=== PATIENT | female | born 1955 | race Caucasian/White ===

== ENCOUNTER → 2019-01-16 | Outpatient (CLI) | payer BC ==
--- NOTE | 2019-01-16 10:02 | Diagnostic Imaging Report ---
EXAMINATION: MRI of the lumbar spine without contrast HISTORY: Low back pain radiating to the right lower extremity for the last 2 weeks, sciatica COMPARISON: None. TECHNIQUE: Sagittal T1, T2, STIR; axial T2 and proton density. FINDINGS: It is assumed that there are 5 lumbar vertebrae. Curvature/Alignment: Normal lordosis. Levoscoliosis seen with apex at L3-L4 right-sided proximal and distal lumbosacral convexity recurves. Right lateral spondylolisthesis seen at L3-L4. Minimal retrolisthesis at L1-L2. Vertebrae: No evidence of recent fracture, infection, or neoplasm. Chronic endplate degenerative changes from L1 to S1. Modic type I endplate degenerative changes with subchondral bone marrow edema mainly on the left at L1-L2 and on the right at L3-L4 and L4-L5. Conus: Normal, terminating at L1 Cauda equina: Unremarkable. Lower thoracic: Unremarkable. Paraspinal soft tissues: Moderate to severe atrophy of the paraspinal muscles mainly in the lumbosacral region. Degenerative changes: L1-L2: Asymmetric to left disc osteophyte and facet arthrosis. Moderate left foraminal stenosis. No canal or right foraminal stenosis. L2-L3: Mild facet arthrosis without stenosis. L3-L4: Decreased disc height and T2 signal intensity, asymmetric to the right disc osteophyte complex formation and facet arthrosis. Ligamenta flava thickening. Moderate spinal canal stenosis. Moderately severe right and moderate left foraminal stenosis. L4-L5: Decreased disc height and T2 signal intensity, asymmetric to the right disc osteophyte complex formation with marginal endplate osteophytes, prominent facet arthroses and ligamenta flava thickening. Moderately severe spinal canal and severe right foraminal stenosis with probable compression upon the exiting right L4 nerve root. Minimal bilateral facet joint effusion with bone marrow edema, periarticular swelling related to degenerative synovitis. Additionally small right medial facet 3 mm synovial cyst contributing to canal narrowing. L5-S1: Decreased disc height and T2 signal intensity, with marginal endplate osteophytes and facet arthrosis. Mild bilateral foraminal stenosis. No spinal canal stenosis. IMPRESSION: 1. Moderate degenerative spinal canal and moderately severe right and moderate left foraminal stenosis at L3-L4. 2. Moderately severe spinal canal and severe right foraminal stenosis at L4-L5 due to degenerative changes and scoliosis. Possible compression upon the exiting right L4 nerve root. 3. 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 4. Prominent S shaped scoliosis predominantly levoscoliosis centered at L3-L4. 5. Modic Type 1 endplate degenerative changes with subchondral bone marrow edema at L1-L2, L3-L4 and L4-L5. Signed by: Dr. Rin Fowler M.D. on 01/16/2019 9:59 AM
== END ==
LOC: MRI 07:33
PROVIDERS: ATTEND Family Medicine
DX: M54.31 Sciatica, right side (principal)
CPT/HCPCS: 72148

== ENCOUNTER 2019-01-30 09:17 | Observation (INO) | payer MEDICARE ==
[2019-01-29 12:11] LABS: BASOPHILS % 0.4 % (0.0-1.0); EOSINOPHILS # (AUTO) 0.2 (0.0-0.4); EOSINOPHILS % 2.9 % (0.0-6.0); HEMOGLOBIN 15.7 g/dL (12.0-16.0); LYMPHOCYTES # (AUTO) 1.2 (1.0-3.2); LYMPHOCYTES % 14.5 % (18.0-39.1); MEAN CORPUSCULAR HGB CONC 34.1 g/dL (31-35); MEAN CORPUSCULAR VOLUME 93.9 fL (81-99); MONOCYTES # (AUTO) 0.5 (0.2-0.8); MONOCYTES % 5.4 % (4.4-11.3); NEUTROPHILS # (AUTO) 6.4 (2.1-6.9); NEUTROPHILS % 76.3 % (38.7-80.0); PLATELET COUNT 228 x10e3/uL (140-360); RED CELL DISTRIBUTION WIDTH 13.2 % (11.7-14.4)
--- NOTE | 2019-01-29 12:19 | Diagnostic Imaging Report ---
EXAMINATION: PA and lateral views of the chest. COMPARISON: None available CLINICAL HISTORY: Preoperative study for spinal surgery DISCUSSION: Lines/tubes: None. Lungs: The lungs are well inflated and clear. There is no evidence of pneumonia or pulmonary edema. Pleura: There is no pleural effusion or pneumothorax. Heart and mediastinum: The cardiomediastinal silhouette is normal. Bones and soft tissues: No acute bony abnormalities. IMPRESSION: No acute cardiopulmonary abnormalities. Signed by: Dr. Tawanda Padilla M.D. on 01/29/2019 12:15 PM
[2019-01-29 12:25] LABS: INR 0.89; PARTIAL THROMBOPLASTIN TIME 26.4 seconds (23.8-35.5); PROTHROMBIN TIME 12.5 seconds (11.9-14.5)
[2019-01-29 12:31] LABS: ANION GAP 11.8 mmol/L (8-16); BLOOD UREA NITROGEN 16 mg/dL (7-26); BUN/CREATININE RATIO 18 (6-25); CALCIUM 9.8 mg/dL (8.4-10.2); CARBON DIOXIDE 26 mmol/L (22-29); CHLORIDE 104 mmol/L (98-107); CREATININE, SERUM 0.89 mg/dL (0.57-1.11); EST GLOMERULAR FILTRATION RATE > 60 ML/MIN (60-); GLUCOSE 119 mg/dL (74-118); POTASSIUM 3.8 mmol/L (3.5-5.1); SODIUM 138 mmol/L (136-145)
[2019-01-30] VITALS (7 sets, daily range): BP systolic 180–210; BP diastolic 76–91
[~2019-01-30] VITALS: Ht 167.6 cm; Wt 116.8 kg
[~2019-01-30 09:17] MED LIST: ACTOS15 MG PO; ASPIR 8181 MG PO; ATORVASTATIN CA10 MG PO; ATORVASTATIN CA20 MG PO; BACITRACIN 50,000 UNIT VIAL ONE; BUPIVACAINE 0.5%/EPI 30 ML SDV INJ ONE; CALCIUM PO; FUROSEMIDE40 MG PO; GELATIN SPONGE 12-7MM ONE; INVOKANA PO; JANUVIA100 MG PO; LEVOTHYROXINE100 MC1 PO; LOSARTAN POTAS100 MG PO; METAXALONE800 MG PO; METOPROLOL SUCC50 MG PO; MULTI-VITAMIN1 EACH PO; NIFEDIPINE ER30 M1 PO; POTASSIUM CHLO10 ME1 PO; THROMBIN FOR SOLN 5,000 UNIT VIAL ONE; TRESIBA SC; TYLENOL WITH C1 EACH PO; VIT B PO; VIT D PO; ZYRTEC10 M3 PO
--- OUTSIDE RECORDS SUMMARY | 2019-01-30 09:25 | XMS REPORT ---
Author Author [facility] Address Unknown Phone Unavailable Care Team Providers Care Agricultural Service Technician Name Role Phone OSVALDO BARNES Unavailable Unavailable YUE CASTRO Unavailable Unavailable Problems This patient has no known problems. Allergies, Adverse Reactions, Alerts This patient has no known allergies or adverse reactions. Medications This patient has no known medications. Results Test Description Test Time Test Comments Text Results Atomic Results Result Comments CHEST 2 VIEWS 2019-01-29 12:14:00 [facility] [address] [address] Patient Name: JARON RUELAS MR #: [id number] : 1955 Age/Sex: 63/F Req #: [id number] Adm Physician: Ordered by: OSVALDO BARNES MD Report #: [id number] Location: OR Room/Bed: Procedure: [id number] DX/CHEST 2 VIEWS Exam Date: 01/29/19 Exam Time: 1150 REPORT STATUS: Signed EXAMINATION: PA and lateral views of the chest. COMPAR LITZY: None available CLINICAL HISTORY: Preoperative study for spinal surgery DISCUSSION: Lines/tubes: None. Lungs: The lungs are well inflated and clear. There is no evidence of pneumonia or pulmonary edema. Pleura: There is no pleural effusion or pneumothorax. Heart and mediastinum: The cardiomediastinal silhouette is normal. Bones and soft tissues: No acute bony abnormalities. IMPRESSION: No acute cardiopulmonary abnormalities. Signed by: Dr. Aide Kelley M.D. on 01/29/2019 12:15 PM Dictated By: AIDE KELLEY MD 14 Transcribed By: HENRY on 01/29/191214 COPY TO: OSVALDO BARNES MD MRI SPINE LUMBAR WO 2019-01-16 09:53:00 [address] [address] Patient Name: JARON RUELAS MR #: [id number] : 1955 Age/Sex: 63/F Req #: [id number] Adm Physician: Ordered by: YUE CASTRO DO Report #: [id number] Location: MRI Room/Bed: Procedure: [id number] MRI/MRI SPINE LUMBAR WO Exam Date: Exam Time: REPORT STATUS: Signed EXAMINATION: MRI of the lumbar spine without contrast HISTORY: Low back pain radiating to the right lower extremity for the last 2 weeks, sciatica COMPARISON: None. TECHNIQUE: Sagittal T1, T2, STIR; axial T2 and proton density. FINDINGS: It is assumed that there are 5 lumbar vertebrae. Curvature/Alignment: Normal lordosis. Levoscoliosis seen with apex at L3-L4 right-sided proximal and distal lumbosacral convexity recurves. Right lateral spondylolisthesis seen at L3-L4. Minimal retrolisthesis at L1-L2. Vertebrae: No evidence of recent fracture, infection, or neoplasm. Chronic endplate degenerative changes from L1 to S1. Modic type I endplate degenerative changes with subchondral bone marrow edema mainly on the left at L1-L2 and on the right at L3-L4 and L4-L5. Conus: Normal, terminating at L1 Cauda equina: Unremarkable. Lower thoracic: Unremarkable. Paraspinal soft tissues: Moderate to severe atrophy of the paraspinal muscles mainly in the lumbosacral region. Degenerative changes: L1-L2: Asymmetric to left disc osteophyte and facet arthrosis. Moderate left foraminal stenosis. No canal or right foraminal stenosis. L2-L3: Mild facet arthrosis without stenosis. L3-L4: Decreased disc height and T2 signal intensity, asymmetric to the right disc osteophyte complex formation and facet arthrosis. Ligamenta flava thickening. Moderate spinal canal stenosis. Moderately severe right and moderate left foraminal stenosis. L4-L5: Decreased disc height and T2 signal intensity, asymmetric to the right disc osteophyte complex formation with marginal endplate osteophytes, prominent facet arthroses and ligamenta flava thickening. Moderately severe spinal canal and severe right foraminal stenosis with probable compression upon the exiting right L4 nerve root. Minimal bilateral facet joint effusion with bone marrow edema, periarticular swelling related to degenerative synovitis. Additionally small right medial facet 3 mm synovial cyst contributing to canal narrowing. L5-S1: Decreased disc height and T2 signal intensity, with marginal endplate osteophytes and facet arthrosis. Mild bilateral foraminal stenosis. No spinal canal stenosis. IMPRESSION: 1. Moderate degenerative spinal canal and moderately severe right and moderate left foraminal stenosis at L3-L4. 2. Moderately severe spinal canal and severe right foraminal stenosis at L4-L5 due to degenerative changes and scoliosis. Possible compression upon the exiting right L4 nerve root. 3. 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 4. Prominent S shaped scoliosis predominantly levoscoliosis centered at L3-L4. 5. Modic Type 1 endplate degenerative changes with subchondral bone marrow edema at L1-L2, L3-L4 and L4-L5. Signed by: Dr. Az Fowler M.D. on 01/16/2019 9:59 AM Dictated By: AZ FOWLER MD 8 Transcribed By: HENRY on 01/16/19958 COPY TO: YUE CASTRO DO
[2019-01-30] MEDS ORDERED: CEFAZOLIN SOD 2 GM/D5W 50ML 50 ML IV ONE (09:51)
[2019-01-30] MEDS ORDERED: ACETAMINOPHEN 1000 MG/100 ML 100 ML IV ONE (11:17)
[2019-01-30] MEDS ORDERED: SUGAMMADEX SODIUM 200 MG/2 ML VIAL IV ONE (11:17)
[2019-01-30] MEDS ORDERED: CARISOPRODOL 350 MG TAB PO PRN (12:45)
[2019-01-30] MEDS ORDERED: ACETAMINOPHEN 325 MG TAB PO PRN (12:45)
[2019-01-30] MEDS ORDERED: PROMETHAZINE HCL (IM) 25 MG/ML VIAL IM PRN (12:45)
[2019-01-30] MEDS ORDERED: HYDROMORPHONE 2MG/ML 2 MG/ML ML IV PRN (12:45)
[2019-01-30] MEDS ORDERED: OXYCODONE/ACETAMINOPHEN 5-325 1 EACH TABLET PO PRN (12:45)
[2019-01-30] MEDS ORDERED: MORPHINE SULFATE 5 MG/ML VIAL IM PRN (12:45)
[2019-01-30] MEDS ORDERED: ZOLPIDEM TARTRATE 5 MG TAB PO PRN (12:45)
[2019-01-30] MEDS ORDERED: MAGNESIUM/ALUMINUM/SIMETHICONE 30 ML UDC PO PRN (12:45)
[2019-01-30] MEDS ORDERED: ONDANSETRON HCL INJ 2MG/ML 2ML 2 MG/ML VIAL IV PRN (12:45)
[2019-01-30] MEDS ORDERED: CEFAZOLIN SOD 1 GM/NS 50ML 50 ML IV SCH (14:00)
--- NOTE | 2019-01-30 14:00 | NUR ---
patient arrived to unit alert and oriented. call duarte within reach and bed in lowest position. daughter at bedside.
[2019-01-30] MEDS: METAXALONE 800 MG TAB PO SCH ×2 (14:40→20:02)
[2019-01-30] MEDS: LACTATED RINGER'S 1,000 ML IV SCH ×3 (14:45→19:21)
[2019-01-30] MEDS ORDERED: LOSARTAN POTASSIUM 100 MG TAB PO ONE (16:00)
[2019-01-30] MEDS ORDERED: PNEUMOCOCCAL VACCINE POLYVALENT 23 MCG/0.5 ML VIAL IM SCH (16:00)
[2019-01-30] MEDS: POTASSIUM CHLORIDE 10MEQ EA PO SCH (16:45)
[2019-01-30] MEDS ORDERED: FENTANYL CITRATE/PF 100MCG/2 ML INJ ONE (17:35)
[2019-01-30] MEDS ORDERED: MORPHINE SULFATE INJ 10 MG/ML ONE (17:35)
[2019-01-30] MEDS ORDERED: MIDAZOLAM HCL 2 MG/2 ML VIAL ONE (17:35)
--- NOTE | 2019-01-30 18:40 | NUR ---
rounded with overnight cashier nurse, patient aware of change and in no distress with sister at bedside. call duarte within reach and bed in lowest position.
[2019-01-30] MEDS: CEFAZOLIN SOD 1 GM/NS 50ML 50 ML IV SCH (19:11)
[2019-01-30] MEDS ORDERED: DESFLURANE 240 ML BTL INH ONE (19:26)
[2019-01-30] MEDS ORDERED: DEXAMETHASONE SOD PHOS INJ 4 MG/ML VIAL ONE (19:26)
[2019-01-30] MEDS ORDERED: PROPOFOL IV EMULSION 10 MG/ML 20 ML VIAL ONE (19:26)
[2019-01-30] MEDS ORDERED: ONDANSETRON HCL INJ 2MG/ML 2ML 2 MG/ML VIAL ONE (19:26)
[2019-01-30] MEDS ORDERED: LIDOCAINE HCL 2% LOCAL INJ 5 ML SDV VIAL INJ ONE (19:26)
--- NOTE | 2019-01-30 20:24 | Operative Report ---
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 POSTOPERATIVE DIAGNOSIS: Right L3-4 and L4-5 lateral recess stenosis with radiculopathy and unilateral neurogenic claudication, M48.062. PROCEDURES: 1. Right L3-4 laminotomy, medial facetectomy, and microsurgical lateral recess decompression, 39585. 2. Right L4-5 laminotomy, medial facetectomy, and microsurgical lateral recess decompression, [id number]. ANESTHESIA: General. INDICATIONS: The patient is a 63-year-old woman who presents with severe right L3-4 and L4-5 lateral recess stenosis due to facet and ligamentous hypertrophy. Symptomatic with right-sided radicular pain and unilateral neurogenic claudication. She was taken operating room for microsurgical decompression of these two segments. PROCEDURE IN DETAIL: After induction of general anesthesia, the patient was placed on the operating table in prone position over David frame. Lumbar region was prepped and draped in sterile fashion. A preoperative x-ray was obtained. A midline incision was created. The lumbar fascia was on the right of midline and subperiosteal dissection was carried out to expose the right side of the L3, L4, and L5 lamina and the medial aspect of the corresponding hypertrophic facet joints. A 2nd x-ray confirmed correct localization. The operating microscope was brought in. A high-speed drill equipped with israel bur was used to drill the inferior aspect of the lamina of L3 and the medial aspect of the L3-4 hypertrophic facet joint, and superior rim of the lamina of L4 and the inferior aspect of lamina of L4 and the medial rim of the hypertrophic L4-5 facet joint and the superior rim of the lamina of L5. The markedly hypertrophic ligamentum flavum at L3-4 and L4-5 was then carefully dissected off the dura and resected in a piecemeal fashion until the right side of the dura and right L4 and L5 traversing nerve roots were fully exposed and decompressed. Meticulous hemostasis was secured. The retractor was removed. The lumbar fascia was closed with zero Vicryl suture. Subcutaneous layer was closed with 2-0 Vicryl sutures. The skin was closed with 3-0 Monocryl sutures in subcuticular fashion. Steri-Strips and dressing were applied. The patient was awakened, extubated, and taken to postanesthesia care unit in stable condition. No intraoperative complications were encountered. Estimated blood loss was 20 mL. Marcelino Yoder MD PP/MAIA /[id number]
[2019-01-30] MEDS ORDERED: [UNRECOGNIZED DRUG - OTHER] SC SCH (21:00)
[2019-01-30] MEDS ORDERED: PIOGLITAZONE HCL 15 MG TAB PO SCH (21:00)
[2019-01-30] MEDS ORDERED: ATORVASTATIN 20 MG TAB PO SCH (21:00)
[2019-01-30] MEDS ORDERED: SITAGLIPTIN 100 MG TAB PO SCH (21:00)
[2019-01-30] MEDS ORDERED: METOPROLOL SUCCINATE 50 MG TAB XL PO SCH (21:00)
[2019-01-31] VITALS: BP 163/70
[2019-01-31] MEDS: CEFAZOLIN SOD 1 GM/NS 50ML 50 ML IV SCH (03:11)
[2019-01-31 04:00] VITALS: BP 162/72
[2019-01-31] MEDS: METAXALONE 800 MG TAB PO SCH (05:06)
[2019-01-31] MEDS ORDERED: CANAGLIFLOZIN 300 MG TABLET PO SCH (09:00)
[2019-01-31] MEDS ORDERED: FUROSEMIDE 40 MG TAB PO SCH (09:00)
[2019-01-31] MEDS ORDERED: NIFEDIPINE CR 30 MG TAB PO SCH (09:00)
[2019-01-31] MEDS ORDERED: ACETAMINOPHEN/CODEINE 300MG - 30MG TAB PO PRN (09:00)
[2019-01-31] MEDS ORDERED: LOSARTAN POTASSIUM 100 MG TAB PO SCH (09:00)
[2019-01-31] MEDS ORDERED: LORATADINE 10 MG TAB PO SCH (09:00)
[2019-01-31] MEDS ORDERED: MULTIVITAMINS/MINERALS TAB PO SCH (09:00)
[2019-01-31] MEDS ORDERED: NON-FORMULARY MEDICATION ([Invokana] 300 MG) PO SCH (09:00)
[2019-01-31] MEDS: POTASSIUM CHLORIDE 10MEQ EA PO SCH (09:58)
[2019-01-31 10:03] VITALS: BP 154/77
[2019-01-31 10:08] VITALS: BP 154/77
[2019-01-31] MEDS ORDERED: NORCO 7.5-3251 EACH PO (10:24)
[2019-01-31] MEDS ORDERED: ONDANSETRON HCL 4 MG ORAL DISINTEGRATING TAB PO PRN (10:45)
== END 2019-01-31 10:50 | disposition home or self-care (01) ==
LOC: OR 09:17 → PACU V 12:39 → IMCU 14:08
PROVIDERS: ADMIT Neurological Surgery; ATTEND Neurological Surgery
DX: M48.062 Spinal stenosis, lumbar region with neurogenic claudication (principal); Z01.810 Encounter for preprocedural cardiovascular examination; Z01.812 Encounter for preprocedural laboratory examination; Z01.811 Encounter for preprocedural respiratory examination; E11.9 Type 2 diabetes mellitus without complications; E03.9 Hypothyroidism, unspecified; I10 Essential (primary) hypertension; E78.00 Pure hypercholesterolemia, unspecified; R06.02 Shortness of breath; Z91.041 Radiographic dye allergy status; Z91.013 Allergy to seafood; Z79.82 Long term (current) use of aspirin; Z79.84 Long term (current) use of oral hypoglycemic drugs; E66.9 Obesity, unspecified; Z68.41 Body mass index [BMI] 40.0-44.9, adult; E78.5 Hyperlipidemia, unspecified; Z90.49 Acquired absence of other specified parts of digestive tract
CPT/HCPCS: 36415 ×3; 63047; 63048; 71046; 72020; 80048; 82948 ×2; 85025; 85610; 85730; 86850; 86900; 88304; 88311; 93005; G0378 ×2; J0131; J0690 ×2; J1100; J2001; J2250; J2270; J2405; J2704; J7121

== ENCOUNTER 2019-02-20 17:00 | Outpatient (RCR) | payer MEDICARE ==
[~2019-02-20 17:00] MED LIST changes: -BACITRACIN 50,000 UNIT VIAL ONE; -BUPIVACAINE 0.5%/EPI 30 ML SDV INJ ONE; -GELATIN SPONGE 12-7MM ONE; +NORCO 7.5-3251 EACH PO; -THROMBIN FOR SOLN 5,000 UNIT VIAL ONE
== END 2019-02-23 ==
LOC: PT 17:00
PROVIDERS: ATTEND Neurological Surgery
DX: M48.062 Spinal stenosis, lumbar region with neurogenic claudication (principal); M62.81 Muscle weakness (generalized); M53.86 Other specified dorsopathies, lumbar region

== ENCOUNTER 2019-03-20 17:00 | Outpatient (RCR) | payer MEDICARE | END 2019-03-26 | LOC: PT 17:00 | PROVIDERS: ATTEND Neurological Surgery | DX: M48.062 Spinal stenosis, lumbar region with neurogenic claudication (principal); M62.81 Muscle weakness (generalized); M53.86 Other specified dorsopathies, lumbar region ==

== ENCOUNTER 2021-08-24 11:12 | Inpatient (IN) | payer MEDICARE ==
[2021-08-24] VITALS (9 sets, daily range): BP systolic 142–172; BP diastolic 71–145
[~2021-08-24] VITALS: Ht 167.6 cm; Wt 96.2 kg
[2021-08-24] MEDS ORDERED: SODIUM CHLORIDE 0.9% 1000ML 1,000 ML IV STA (11:33)
[2021-08-24] MEDS ORDERED: CEFEPIME 2 GM in SODIUM CHLORIDE 0.9% 100 ML IV ONE (11:45)
[2021-08-24 11:51] LABS: BASOPHILS # (AUTO) 0.1 (0.0-0.1); BASOPHILS % 0.6 % (0.0-1.0); EOSINOPHILS # (AUTO) 0.2 (0.0-0.4); EOSINOPHILS % 2.3 % (0.0-6.0); HEMATOCRIT 46.2 % (34.2-44.1); HEMOGLOBIN 15.3 g/dL (12.0-16.0); LYMPHOCYTES # (AUTO) 0.8 (1.0-3.2); LYMPHOCYTES % 8.3 % (18.0-39.1); MEAN CORPUSCULAR HEMOGLOBIN 32.2 pg (28-32); MEAN CORPUSCULAR HGB CONC 33.1 g/dL (31-35); MEAN CORPUSCULAR VOLUME 97.3 fL (81-99); MONOCYTES # (AUTO) 0.8 (0.2-0.8); MONOCYTES % 8.5 % (4.4-11.3); NEUTROPHILS # (AUTO) 7.7 (2.1-6.9); NEUTROPHILS % 79.4 % (38.7-80.0); PLATELET COUNT 251 x10e3/uL (140-360); RED BLOOD COUNT 4.75 x10e6/uL (3.6-5.1); RED CELL DISTRIBUTION WIDTH 13.6 % (11.7-14.4)
[2021-08-24 11:55] LABS: INR 1.08; PROTHROMBIN TIME 14.9 seconds (11.9-14.5)
[2021-08-24 11:56] LABS: PARTIAL THROMBOPLASTIN TIME 27.6 seconds (23.8-35.5)
[2021-08-24 12:00] LABS: CLARITY,URINE CLOUDY (CLEAR); COLOR,URINE YELLOW (YELLOW); KETONES,URINE 2+ (NEGATIVE); LEUKOCYTE ESTERASE ,URINE SMALL (NEGATIVE); NITRITE,URINE NEGATIVE (NEGATIVE); PROTEIN,URINE DIPSTICK 2+ (NEGATIVE); URINE UROBILINOGEN 0.2 mg/dL (0.2 - 1)
[2021-08-24 12:01] LABS: BACTERIA,URINE MODERATE /HPF; WBC,URINE (MAN) >50 /HPF (0-5); YEAST,URINE FEW
[2021-08-24 12:05] LABS: ALBUMIN 3.3 g/dL (3.5-5.0); ALBUMIN/GLOBULIN RATIO 0.8 (0.8-2.0); ANION GAP 26.1 mmol/L (8-16); CALCIUM 10.6 mg/dL (8.4-10.2); CREATININE, SERUM 1.18 mg/dL (0.57-1.11); MAGNESIUM 1.8 MG/DL (1.3-2.1); POTASSIUM 3.1 mmol/L (3.5-5.1)
[2021-08-24 12:24] LABS: CREATINE KINASE MB 2.6 ng/mL (0-5.0); THYROID STIMULATING HORMONE 2.545 uIU/mL (0.350-4.940)
[2021-08-24] MEDS ORDERED: SODIUM CHLORIDE 0.9% 500ML 500 ML IV ONE ×2 (12:30→14:30)
[2021-08-24] MEDS ORDERED: ONDANSETRON HCL INJ 2MG/ML 2ML 2 MG/ML VIAL IV STA (13:02)
[2021-08-24] MEDS ORDERED: POTASSIUM CHLORIDE 20 MEQ TAB CR PO STA (13:02)
[2021-08-24] MEDS ORDERED: DEXAMETHASONE SOD PHOS 10 MG/1 ML VIAL IV ONE (13:15)
[2021-08-24] MEDS ORDERED: LEVETIRACETAM 500MG/5ML VIAL 1,000 MG in SODIUM CHLORIDE 0.9% 100 ML IV ONE (13:45)
[2021-08-24] MEDS ORDERED: POTASSIUM CHLORIDE 20MEQ/100ML 100 ML IV ONE (14:30)
[2021-08-24] MEDS ORDERED: ONDANSETRON HCL INJ 2MG/ML 2ML 2 MG/ML VIAL IV PRN (15:45)
[2021-08-24] MEDS ORDERED: SODIUM CHLORIDE 0.9% 1000ML 1,000 ML IV SCH (15:45)
[2021-08-24] MEDS ORDERED: DEXTROSE 50% SYRINGE 50 ML IV PRN (17:00)
[2021-08-24] MEDS ORDERED: HYDRALAZINE HCL 20 MG/ML VIAL IV PRN (17:00)
[2021-08-24] MEDS: LACTATED RINGER'S 1,000 ML INJ SCH (17:39)
[2021-08-24] MEDS ORDERED: ATORVASTATIN 20 MG TAB PO SCH (21:00)
[2021-08-24] MEDS: INSULIN REGULAR, HUMAN 100 UNIT/1 ML SQ SCH (21:00)
[2021-08-24] MEDS: DEXAMETHASONE SOD PHOS INJ 4 MG/ML SDV IV SCH (21:08)
[2021-08-25] VITALS (12 sets, daily range): BP systolic 122–162; BP diastolic 64–114
[2021-08-25] MEDS: LACTATED RINGER'S 1,000 ML INJ SCH (01:41)
[2021-08-25] MEDS: LEVETIRACETAM 500MG/5ML VIAL 500 MG in SODIUM CHLORIDE 0.9% 100 ML IV SCH ×2 (01:42→14:02)
[2021-08-25 05:04] LABS: HEMOGLOBIN 13.7 g/dL (12.0-16.0); MEAN CORPUSCULAR HEMOGLOBIN 32.7 pg (28-32); MEAN CORPUSCULAR HGB CONC 33.4 g/dL (31-35); MEAN CORPUSCULAR VOLUME 97.9 fL (81-99); PLATELET COUNT 206 x10e3/uL (140-360); RED BLOOD COUNT 4.19 x10e6/uL (3.6-5.1); RED CELL DISTRIBUTION WIDTH 13.2 % (11.7-14.4)
[2021-08-25 05:05] LABS: BASOPHILS % 0.2 % (0.0-1.0); LYMPHOCYTES # (AUTO) 0.7 (1.0-3.2); LYMPHOCYTES % 8.9 % (18.0-39.1); MONOCYTES # (AUTO) 0.2 (0.2-0.8); MONOCYTES % 2.7 % (4.4-11.3); NEUTROPHILS # (AUTO) 7.2 (2.1-6.9); NEUTROPHILS % 87.1 % (38.7-80.0)
[2021-08-25 05:42] LABS: ALBUMIN 2.8 g/dL (3.5-5.0); ALBUMIN/GLOBULIN RATIO 0.9 (0.8-2.0); ANION GAP 17.5 mmol/L (8-16); CALCIUM 9.6 mg/dL (8.4-10.2); CREATININE, SERUM 0.92 mg/dL (0.57-1.11); POTASSIUM 3.5 mmol/L (3.5-5.1)
[2021-08-25] MEDS: DEXAMETHASONE SOD PHOS INJ 4 MG/ML SDV IV SCH (08:08)
[2021-08-25] MEDS ORDERED: HYDROCODONE/APAP 7.5MG-325MG 1 EA TAB PO PRN (08:15)
[2021-08-25] MEDS: INSULIN REGULAR, HUMAN 100 UNIT/1 ML SQ SCH ×3 (08:26→16:30)
[2021-08-25] MEDS ORDERED: NIFEDIPINE CR 30 MG TAB PO SCH (09:00)
[2021-08-25] MEDS ORDERED: LOSARTAN POTASSIUM 100 MG TAB PO SCH (09:00)
[2021-08-25] MEDS ORDERED: LEVOTHYROXINE SODIUM 100 MCG/VIAL IV SCH (09:00)
[2021-08-25] MEDS ORDERED: SODIUM CHLORIDE 0.9% 250ML 250 ML ONE (13:27)
[2021-08-26] MEDS ORDERED: AZITHROMYCIN 250 MG TAB PO SCH (09:00)
== END 2021-08-25 18:04 | disposition short-term general hospital (02) | DRG 542 ==
LOC: ER 11:20 → ERHOLD 15:41 → ICU 16:46 → MED/SURG2 08-25 09:55 → MED/SURG3 08-25 10:16
DX: C79.51 Secondary malignant neoplasm of bone (principal); J18.9 Pneumonia, unspecified organism; C79.31 Secondary malignant neoplasm of brain; N17.9 Acute kidney failure, unspecified; E87.0 Hyperosmolality and hypernatremia; E87.2 Acidosis; N39.0 Urinary tract infection, site not specified; Z16.12 Extended spectrum beta lactamase (ESBL) resistance; E87.6 Hypokalemia; R73.9 Hyperglycemia, unspecified; N28.9 Disorder of kidney and ureter, unspecified; C80.1 Malignant (primary) neoplasm, unspecified; R53.81 Other malaise; Z91.041 Radiographic dye allergy status; Z20.822 Contact with and (suspected) exposure to COVID-19; B96.20 Unspecified Escherichia coli [E. coli] as the cause of diseases classified elsewhere
CPT/HCPCS: 36415; 51700; 70450; 71045; 71250; 72125; 74176; 80053; 81001; 82550; 82553; 82948; 83605; 83735; 83880; 84443; 84484; 85025; 85610; 85730; 87040; 87071; 87086; 87186; 87205; 93005; 94799; 96372; 99285; J0456; J0692; J1100; J1817; J2405; J3480; J7030; J7040; J7050; J7121; U0002